=== PATIENT | female | born 2005 | race Caucasian/White ===

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

== ENCOUNTER 2023-02-08 14:30 | Outpatient (RCR) | payer OTHER, SELFPAY ==
--- NOTE | 2023-02-02 07:59 | HP.OTEVAL ---
Patient's Visit Information MOLLY GREENWOOD is a 17 year old F, referred to Occupational Therapy by Dr. Jose Garcia MD, with a diagnosis of left closed bennetts fx. Date of Evaluation: 01/13/23 Occupational Therapist: Mayda Correa, OTR/[place], CHT - Subjective This 17 year old female was seen for OT eval with dx of left closed espinoza's fx of left thumb- December 17. pt underwent ORIF of 12/27/22. pt arrives with orthosis on pin sites clean and dry (01/13/23). right handed. work at [employer] and has horses. pt would like to return to her PLOF. - ROM CMC: right 10 left 10* (tested 02/01/23) MP: right 55 left 45* (tested 02/01/23) IP: right 60* left 65* (tested 02/01/23) Opposition: Kapandji opposition scale right 10 left 9 ( MP crease) ROM Comments: pt arrives today 1 week following pin removal demo functional ROM. - Strength Steward/Stewardess Economy Class: right 100# left 65# Lateral Pinch: right 14# left 10# Tripod Pinch: right 16# left unable Strength Comments: strength was tested on 02/01/23 - Sensation Sensation Comments: pt reports sensation deficits around incision area - Goals Goal:Daily scar massage when approriate: Yes Goal:ROM equal to unaffected hand: Yes Goal:Steward/Stewardess Economy Class/Pinch strength at least 75% of unaffected hand: Yes Goal:No pain with affected hand use: Yes Goal:Full use of affected hand in daily activities including: Yes - Rehabilitation General Assessment: pt was seen for initaial eval on 01/13/23- for ed on pin site care: pt demo understanding. pt arrives 02/01/23, 1 week following pin removal demo functional ROM but weakness. Pt would benefit from skilled OT services 1-2x week for 3-4 weeks to return pt to her PLOF. Today therapist ed pt on AROM ex and thumb stabilization ex. pt was given handout and demo understanding and agree to POC. Rehabilitation Potential: Good - Anticipated Interventions A/AAROM/PROM, Strengthening, Scar Care, Modalities, Orthoses, Joint Protection/Energy Conservation, Home Program - Visit Plan Frequency: 1-2x /Week Duration: 2-4 Weeks TEXT: Thank you for the opportunity to evaluate your patient. For Medicare and Medicare HMO plans, please review the plan of care and approve it. It will need to be FAXED BACK to us at [phone] for Medicare purposes. Please let me know if there are questions or concerns regarding this plan of care. Physician Signature: Date:
--- NOTE | 2023-02-08 14:56 | HP.OTDCSUM_ITS ---
It has been my pleasure to treat MOLLY GREENWOOD under orders from Dr. Jose Garcia MD, for the diagnosis of left closed bennetts fx for a total of 3 visit(s). Please see the following information for a summary of their discharge status. % Improvement: 95 Objective/Function: left cmc 10*. left MP 55*. left IP 75*. left wellness consultant strength 80#. pt demo slight kiloid scaring and using scar tape to decrease signs of raised scars. 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 ( [employer]). pt reports she is doing all her ADls IADLs and working with her horses. pt agrees to D/c Patient Goals: Regain Strength, Use Hand/Wrist/Arm Normally Again Goal:Daily scar massage when approriate: Yes Goal:ROM equal to unaffected hand: Yes Goal:Agricultural Extension Officer/Pinch strength at least 75% of unaffected hand: Yes Goal:No pain with affected hand use: Yes Goal:Full use of affected hand in daily activities including: Yes Plan: D/C with HEP Discharge Comments: pt was seen for 3 OT sessions following left thumb pinning with removal two weeks ago- pt has has met OT goals and is now D/c with HEP of thumb stabilization and endurance ex. pt demo understanding and agrees to D/C. If there are questions or concerns regarding this patient's occupational therapy, please fell free to call me at [phone]. Thank you for the referral of this patient. Sincerely, Mayda Correa, OTR/L, CHT
== END 2023-02-08 19:00 | disposition home or self-care (01) ==
LOC: OT 14:30
PROVIDERS: Referring Provider Orthopaedic Surgery Hand Surgery; Visit Provider Orthopaedic Surgery Hand Surgery
DX: S62.212D Bennett's fracture, left hand, subsequent encounter for fracture with routine healing (principal); Z47.89 Encounter for other orthopedic aftercare
CPT/HCPCS: 97110; 97166; 97530

== ENCOUNTER 2024-05-29 17:50 | Emergency (ER) | payer OTHER, SELFPAY ==
[2024-05-29 17:51] VITALS: BP 148/77; PULSE 88; RESP 18; TEMP 36.5; O2SAT 98; BMI 46.7
--- NOTE | 2024-05-29 19:20 | EDS_ITS ---
HPI HPI - URI History of Present Illness Chief Complaint: Sore Throat Informant: patient Onset/Context/Timing Onset: Days (5) Context: Sudden Onset Timing: Continuous Quality: Pressure Location: Throat Worsened by: Swallowing, Eating Solids, Drinking Liquids and - (Talking) Relieved by: - (Nothing) Associated Symptoms Associated Symptoms: Positive for Nasal Congestion, Headache, Sinus Pressure, Shortness of Breath and Productive Cough; Negative for Myalgias, Nausea, Vomiting, Diarrhea, Chest Pain, Nonproductive cough or Hemoptysis Narrative Narrative: Patient presents with a sore throat that has been getting worse over the past 5 days. Patient describes it as a pressure. Patient states it is over her tonsils. Patient states her tonsils have been swollen over the last 5 days. Patient was recently started on antibiotics and prednisone. Patient states her pain is worse with talking, swallowing, eating, or drinking. Patient states her voice has become more hoarse over the past few days. Patient states she is coughing up some green sputum. Patient admits to headache and sinus pressure. Patient states she had a fever at home of 102.3 earlier this week. Patient states she did have a rapid strep test performed which was negative. ROS ROS ED Constitutional Constitutional ED: Reports fever(s); Denies chills Eyes Eyes: Denies blurry vision or change in vision ENT ENT ED: Reports ear pain, rhinorrhea and sore throat Cardiovascular Cardiovascular: Denies chest pain or palpitations Respiratory/Chest Respiratory/Chest: Reports cough; Denies dyspnea Gastrointestinal Gastrointestinal: Denies nausea or vomiting Genitourinary Genitourinary ED: Denies dysuria or hematuria Musculoskeletal Musculoskeletal: Reports neck pain; Denies back pain Integumentary Denies abscess or rash Neurologic Neurologic: Reports headache(s); Denies weakness Allergic/Immunologic Allergic/Immunologic ED: Denies mouth swelling or urticaria [facility] Medical History Matute's fracture of base of metacarpal of left thumb Pain of left thumb Heart murmur Home Medications ?Medication ?Instructions ?Recorded ?Last Taken ?Type amoxicillin 500 mg capsule 500 mg PO TID 05/29/24 Unknown History prednisone 20 mg tablet 20 mg PO THROAT SWELLING 05/29/24 Unknown History Allergy/AdvReac Type Severity Reaction Status Date / Time No Known Allergies Allergy Verified 05/29/24 17:50 Surgical History History of placement of ear tubes Hx of wisdom tooth extraction no surgical history Social History Smoking Status: Never smoker alcohol intake: never EXAM Physical Exam Const Vital Signs: 05/29/24 17:51 Temperature 97.7 F L Temperature Source Temporal Pulse Rate 88 Respiratory Rate 18 Blood Pressure 148/77 H Blood Pressure Mean 100 Pulse Ox 98 Oxygen Delivery Method Room Air Positive well nourished and well developed General Appearance ED: well developed and NAD HEENT Reports moist mucous membranes HEENT Narrative: Tonsils are enlarged. There is a mild exudate noted on the tonsils. There is equal swelling bilaterally. There is no unilateral swelling. There is no trismus noted. Throat: tonsils abnormal bilateral erythema, exudates and hypertrophy Neck supple, no meningeal signs and no JVD General: Negative for anterior neck swelling Resp normal respiratory effort and clear to auscultation bilaterally Cardio Rate: regular rate Rhythm: regular rhythm GI non-tender and non-distended Palpation: soft Neuro oriented x3, CN's II-XII intact bilaterally and no sensory deficits noted Sensorium / Orientation: alert Motor Exam: strength 5/5 throughout Psych mental status grossly normal MDM MDM MDM Narrative Medical decision making narrative: Differential diagnosis includes peritonsillar abscess, tonsillitis, pharyngitis, and viral illness. CBC will be obtained to assess for leukocytosis and anemia. Basic metabolic profile will be obtained to assess for electrolyte abnormality and renal function. CT scan of the soft tissue neck will be obtained to assess for peritonsillar and posterior pharyngeal abscess. Lab Data Attestation: I reviewed the patient's lab results. Lab results narrative: CBC was reviewed and was within normal limits. Basic metabolic profile was reviewed and was within normal limits. Labs: Laboratory Results - last 24 hr 05/29/24 19:50 WBC 8.1 RBC 4.58 Hgb 13.0 Hct 39.2 MCV 85.6 MCH 28.4 MCHC 33.2 RDW Std Deviation 39.4 RDW Coeff of Inderjit 12.7 Plt Count 325 MPV 9.0 Immature Gran % (Auto) 0.500 Neut % (Auto) 60.3 Lymph % (Auto) 29.2 [place] % (Auto) 7.3 Eos % (Auto) 2.2 Baso % (Auto) 0.5 Absolute Neuts (auto) 4.9 Absolute Lymphs (auto) 2.37 Nucleated RBC % 0 Sodium 136 Potassium 4.1 Chloride 104 Carbon Dioxide 28.0 Anion Gap 4 L BUN 12 Creatinine 0.64 Estim Creat Clear Calc 201.79 Est GFR (MDRD) Af Amer 151 Est GFR (MDRD) Non-Af 125 BUN/Creatinine Ratio 18.8 Glucose 106 Calcium 9.5 Radiography Diagnostic Testing: CT scan of the soft tissue neck was obtained. There is findings consistent with tonsillitis and lymphadenitis but no evidence of peritonsillar abscess. This was interpreted by the radiologist and was also dependently reviewed by myself. Treatment and Re-Evaluation Narrative: Patient was advised of her findings. Patient was instructed to continue her antibiotics as prescribed. Patient was also instructed to continue her steroids as prescribed. Patient was instructed to follow-up with her primary care physician in 5 to 7 days. Patient was instructed to use ice cubes and popsicles to help with the swelling. Patient was instructed to take Tylenol or ibuprofen as needed for pain. Patient and family understood and were agreeable with the plan. All questions were answered. Discharge Plan Triage Chief Complaint: Sore Throat ED Provider: Perez Howard Dx/Rx/DC Orders Clinical Impression: Acute tonsillitis, Odynophagia Instructions: ED Tonsillitis Prescriptions: No Action amoxicillin 500 mg capsule 500 mg PO TID prednisone 20 mg tablet 20 mg PO Primary Care Provider: Alisia Siegel Referrals: Alisia Siegel PA [Primary Care Provider] - 5-7 Days Print Language: Uruguayan Disposition Disposition: Home, Self Care
--- NOTE | 2024-05-29 19:37 | CT_ITS ---
STUDY: CT SOFT TISSUE NECK WITH CONTRAST REASON FOR EXAM: Female, 18 years old. SORE THROAT RADIATION DOSAGE (If Supplied By Facility): CTDIvol = ( 20.19 ) mGy, DLP = ( 645.65 ) mGycm TECHNIQUE: The patient was scanned in a multi-detector CT scanner. High resolution transaxial imaging was performed following intravenous administration of IV 75mL Isovue-370. Sagittal and coronal images were reconstructed. Individualized dose optimization techniques were used for this CT. COMPARISON: None. FINDINGS: Normal bilateral parotid glands. Normal bilateral sweat box attendant spaces. Normal bilateral parapharyngeal spaces. Normal bilateral carotid spaces. Normal bilateral sublingual and submandibular glands and spaces. Normal visualized nasopharynx. Normal retropharyngeal space. Normal perivertebral space. Mild bilateral left thickening of the tonsillar pillars consistent with tonsillitis but no evidence for peritonsillar abscess. The visualized tongue, tongue base and oropharynx are normal. Mildly enlarged bilateral parapharyngeal nodes likely inflammatory. Normal epiglottis, bilateral vallecula and hypopharynx. The pre-epiglottic and paraglottic adipose spaces are normal. Normal visualized bilateral piriform sinuses, aryepiglottic folds, vocal cords, and arytenoid-cricoid articulations. Normal subglottic trachea. Normal bilateral lobes of the thyroid gland. Normal visualized pulmonary apices. Normal visualized paranasal sinuses. Normal visualized cervical spine. CT/Soft Tissue Neck WITH Contrast IMPRESSION: Findings consistent with tonsillitis and bilateral lymphadenitis but no evidence for peritonsillar abscess Electronically Signed: Sam Merlos MD at 20:15 EDT ,
[2024-05-29 20:01] LABS: Absolute Lymphocyte Count 2.37 X10^3/uL (0.83-4.51); Absolute Neutrophil Count 4.9 X10^3/uL (2.0-7.7); Basophil# 0.04 X10^3/uL; Basophil% 0.5 % (0-1); Eosinophil# 0.18 X10^3/uL; Eosinophils% 2.2 % (0-5); Hematocrit 39.2 % (37-47); Lymphocyte # 2.37 X10^3/ul (0.83-4.51); Lymphocyte % 29.2 % (19-41); Mean Corp Hgb Conc 33.2 g/dL (32-36); Mean Corpuscular Hgb 28.4 pg (27.0-32.0); Mean Corpuscular Volume 85.6 fL (81-99); Monocyte# 0.59 X10^3/uL; Monocyte% 7.3 % (0-10); NRBC Flagged by Analyzer 0 % (0-5); Neutrophil % 60.3 % (47-70); Platelet Count 325 K/mm3 (150-450); RBC Distribution Width CV 12.7 % (11.6-14.6); RBC Distribution Width SD 39.4 fl (35.1-43.9); Red Blood Count 4.58 M/mm3 (4.2-5.4); White Blood Count 8.1 K/mm3 (4.4-11.0)
[2024-05-29 20:19] LABS: Anion Gap 4 (5-15); BUN 12 mg/dL (7-18); BUN/Creat Ratio 18.8 RATIO (10-20); Calcium,Total 9.5 mg/dL (8.5-10.1); Chloride 104 mmol/L (98-107); Creatinine, Serum 0.64 mg/dL (0.55-1.02); EST Glomerular Filtration Rate 125 mL/min (>60); Est Glom Filt Rate - Afr Amer 151 mL/min (>60); Estimated Creatinine Clearance 201.79 ml/min; Glucose 106 mg/dL (74-106); Potassium 4.1 mmol/L (3.5-5.1); Sodium Level 136 mmol/L (136-145)
[2024-05-29 20:48] VITALS: BP 135/85; PULSE 82; RESP 16; TEMP 36.8; O2SAT 97
== END 2024-05-29 20:51 | disposition home or self-care (01) ==
PROVIDERS: Emergency Provider Emergency Medicine; PCP Physician Assistant; Visit Provider Emergency Medicine
DX: J03.90 Acute tonsillitis, unspecified (principal); R13.10 Dysphagia, unspecified
CPT/HCPCS: 70491; 80048; 85025; 99283; Q9967

== ENCOUNTER → 2024-05-30 | Outpatient (CLI) | payer OTHER, SELFPAY | END | disposition home or self-care (01) | LOC: LABSPEC 15:38 | PROVIDERS: PCP Physician Assistant; Referring Provider Otolaryngology; Visit Provider Otolaryngology | DX: J03.90 Acute tonsillitis, unspecified (principal) | CPT/HCPCS: 87070; 87077 ==

== ENCOUNTER → 2024-07-24 | Outpatient (CLI) | payer OTHER, SELFPAY ==
[2024-07-26 21:07] LABS: Chlamydia By Nucleic Acid AMP Negative (Negative); Gonococcus By Nucleic Acid AMP Negative (Negative)
== END | disposition home or self-care (01) ==
PROVIDERS: PCP Physician Assistant; Referring Provider Advanced Practice Midwife; Visit Provider Advanced Practice Midwife
DX: R10.2 Pelvic and perineal pain (principal)
CPT/HCPCS: 87491; 87591

== ENCOUNTER → 2024-07-30 | Outpatient (CLI) | payer OTHER, SELFPAY ==
--- NOTE | 2024-07-30 11:14 | US_ITS ---
INDICATION: IUD placement and pelvic pain EXAMINATION: Ultrasound US Transvaginal Non-OB COMPARISON: None. FINDINGS: 93 grayscale ultrasound images of the pelvis obtained transvaginally. In addition dedicated ovarian color Doppler and Doppler waveform interrogation was performed. UTERUS: Uterus measures : 2.3 x 3.8 x 2.9 cm. Echogenic shadowing linear focus within the central endometrium consistent with IUD in place. Endometrial thickness of 0.3 cm. Myometrium is unremarkable. ADNEXA: Flow is documented to bilateral ovaries by color Doppler as well as Doppler waveform. 1.6 cm right ovarian hypoechoic lesion, likely dominant follicle. Left ovary contains few scattered small subcentimeter ovarian follicles. No significant free fluid. US/Transvaginal Non- IMPRESSION: 1.6 cm right likely dominant ovarian follicle. IUD in place. Electronically Signed: Bobby Theodore MD at 7:17 EST ,
== END | disposition home or self-care (01) ==
LOC: US 11:13
PROVIDERS: PCP Physician Assistant; Referring Provider Advanced Practice Midwife; Visit Provider Advanced Practice Midwife
DX: R10.2 Pelvic and perineal pain (principal)
CPT/HCPCS: 76830

== ENCOUNTER → 2024-12-16 | Outpatient (CLI) | payer OTHER, SELFPAY | END | disposition home or self-care (01) | LOC: LABSPEC 20:21 | PROVIDERS: PCP Physician Assistant | DX: J02.9 Acute pharyngitis, unspecified (principal) | CPT/HCPCS: 87070 ==

== ENCOUNTER 2025-04-09 06:45 | Emergency (ER) | payer OTHER, SELFPAY ==
[2025-04-09 06:49] VITALS: BP 148/76; PULSE 72; RESP 18; TEMP 36.6; O2SAT 99; BMI 47.0
--- NOTE | 2025-04-09 07:24 | EX.ED.DYSGE1 ---
HPI History of Present Illness Chief Complaint: Wound Check Detail of Chief Complaint: Postatherectomy bleeding Informant: patient Narrative Narrative: Patient presents to the emergency department with bleeding from her throat that she noticed around 4:30 AM. Patient states that she had gotten up because she had discomfort in her throat and she gargled with some cold water. Afterwards noted bleeding from the back part of her throat around the uvula and the right side. She thinks it slowed down currently. She took some ibuprofen yesterday. Her surgery was on March 31. [facility] Medical History (Updated 04/09/25 @ 07:[address] Maren Mohamud, DO) Giovani's fracture of base of metacarpal of left thumb Pain of left thumb Heart murmur Home Medications ?Medication ?Instructions ?Recorded ?Last Taken ?Type levonorgestrel (Mirena) 1 device intrauterine .[id number] 04/09/25 Unknown History oxycodone-acetaminophen 5 mg-325 1 tab PO Q4H PRN 04/09/25 04/09/25 04:00 History mg tablet Allergy/AdvReac Type Severity Reaction Status Date / Time No Known Allergies Allergy Verified 04/09/25 06:48 Family History (Updated 07/24/24 @ 10:54 by Cristina Funes) Grandfather Diabetes Surgical History (Updated 04/09/25 @ 06:49 by Kell Shen) Hx of tonsillectomy History of placement of ear tubes Hx of wisdom tooth extraction Social History (Updated 07/24/24 @ 10:39 by Cristina Funes) adopted: No household members: significant other and family housing: house number of children: 0 current occupational status: employed current occupation: [employer] pets and animals: Yes pets and animals: cat(s), dog(s), horse(s) and farm animals history of recent travel: Yes ([place]) out of state: Yes out of country: No sexually active: Yes Smoking Status: Never smoker alcohol intake: never substance use type: does not use well-balanced diet: daily or most days caffeine: No eating out: other details: 1 - 2/month during the past year weight has: decreased > 10 lbs what type of physical activity do you participate in: walking frequency: daily gibran/yarsanism: Protestant seatbelt use: always do you feel safe at home: Yes additional social history: fiance - Benedicto ROS ROS ED Review of Systems ROS Unobtainable: other Constitutional Constitutional ED: Reports lethargy; Denies chills, fever(s), sweats or weight loss Eyes Eyes: Denies blurry vision, change in vision or diplopia ENT ENT ED: Reports other Details: Bleeding from throat ; Denies rhinorrhea or sore throat Cardiovascular Cardiovascular: Denies chest pain, orthopnea or racing heartbeat Respiratory/Chest Respiratory/Chest: Denies cough, dyspnea, dyspnea on exertion, orthopnea or sputum Gastrointestinal Gastrointestinal: Denies abdominal pain, diarrhea, nausea or vomiting Genitourinary Genitourinary ED: Denies dysuria, hematuria or urinary frequency Musculoskeletal Musculoskeletal: Denies arthralgias, back pain, myalgias or neck pain Integumentary Denies abscess, Abrasions or rash Neurologic Neurologic: Denies headache(s) or weakness Psychiatric Psychiatric: Denies anxiety, depression or suicidal thoughts Endocrine Endocrinology: Denies polydipsia, polyphagia or polyuria Hematologic/Lymphatic Hematologic/Lymphatic: Denies easy bleeding, easy bruising or lymphadenopathy Allergic/Immunologic Allergic/Immunologic ED: Denies mouth swelling, tongue swelling or urticaria EXAM Physical Exam Const Vital Signs: 04/09/25 06:49 04/09/25 06:53 Temperature 98 F Temperature Source Oral Pulse Rate 72 Respiratory Rate 18 Respiratory Effort Normal Non-Labored Respiratory Pattern Normal Blood Pressure 148/76 H Blood Pressure Mean 100 Pulse Ox 99 Oxygen Delivery Method Room Air Positive well nourished and well developed General Appearance ED: well developed and NAD HEENT Reports TM's clear and moist mucous membranes HEENT Narrative: Evaluation of the oropharynx reveals no active bleeding at this time. There is white eschar to both tonsillar beds. normocephalic and atraumatic; Negative for trauma or tenderness Tympanic Membrane ED: Yes TM's clear Eyes PERRL and EOMs intact bilaterally General Eye ED: Negative for pale conjunctiva or scleral icterus Neck no lymphadenopathy, supple and no JVD General: Negative for tenderness Chest Wall inspection of chest normal and palpation of chest normal Chest: Negative for tenderness Resp normal respiratory effort and clear to auscultation bilaterally Effort and Inspection: Negative for respiratory distress or pain with movement Auscultation: Negative for rhonchi, wheezes or diminished lung sounds Cardio regular rate, regular rhythm, S1 normal heart sound, S2 normal heart sound and no murmurs Peripheral Pulses: pulses 2+ throughout GI normal to inspection, nondistended, normoactive bowel sounds, soft to palpation, non-tender, non-distended and no masses Back/Spine no CVA tenderness and no thoracic nor lumbar tenderness Extremity normal to inspection General Extremety ED: Negative for edema General Extremity: Negative for edema Neuro oriented x3, CN's II-XII intact bilaterally, no sensory deficits noted and gait normal Sensorium / Orientation: awake, alert, oriented to person, oriented to place and oriented to time Motor Exam: strength 5/5 throughout and strength abnormal Psych mental status grossly normal Skin no rashes or lesions noted and no wounds MDM MDM MDM Narrative Medical decision making narrative: Patient presents the emergency department status post tonsillectomy with bleeding from the oropharynx. On exam clinically looks well and no obvious signs of bleeding. I did discuss case with patient's ear nose and throat physician Dr. Guy Jefferson who asked that patient call his office this morning when they open in 20 minutes and arrange follow-up with him this morning. Patient is advised to return if return of bleeding. Discharge Plan Triage Chief Complaint: Wound Check ED Provider: Maren Mohamud Dx/Rx/DC Orders Clinical Impression: Post-op bleeding Instructions: ED Post Op Wound Check, Bleeding Prescriptions: No Action oxycodone-acetaminophen 5-325 mg tablet 1 tab PO Q4H PRN Mirena 21 mcg/24hr (up to 8 yrs) 52 mg intrauterine device 1 device intrauterine .[id number] Primary Care Provider: Alisia Siegel Referrals: Alisia Siegel, JESI [Primary Care Provider] - Activity Restrictions/Additional Instructions: Call Dr. Guy Artis's office this morning to arrange follow-up with him this morning. Return for any bleeding. Print Language: German Disposition Disposition: Home, Self Care
[2025-04-09 07:41] VITALS: BP 124/77; PULSE 68; RESP 15; TEMP 36.4; O2SAT 100
== END 2025-04-09 07:43 | disposition home or self-care (01) ==
PROVIDERS: Emergency Provider Emergency Medicine; PCP Physician Assistant; Visit Provider Emergency Medicine
DX: J95.830 Postprocedural hemorrhage of a respiratory system organ or structure following a respiratory system procedure (principal); R07.0 Pain in throat
CPT/HCPCS: 99283

== ENCOUNTER → 2025-07-25 | Outpatient (CLI) | payer OTHER, SELFPAY ==
[2025-07-28 20:08] LABS: Chlamydia By Nucleic Acid AMP Negative (Negative); Gonococcus By Nucleic Acid AMP Negative (Negative)
[2025-07-30 23:07] LABS: HPV APTIMA, High Risk Negative (Negative)
== END | disposition home or self-care (01) ==
LOC: BWCLAB 11:37 → LABSPEC 11:37
PROVIDERS: PCP Physician Assistant; Visit Provider Advanced Practice Midwife
DX: Z12.4 Encounter for screening for malignant neoplasm of cervix (principal); N94.9 Unspecified condition associated with female genital organs and menstrual cycle
CPT/HCPCS: 87070; 87205; 87491; 87591; 87624; 88175; G0145